=== PATIENT | male | born 1990 | race Caucasian/White ===

== ENCOUNTER 2019-05-13 06:50 | Day surgery (SDC) | payer MEDICAID ==
[~2019-05-13] VITALS: Ht 180.3 cm; Wt 90.9 kg
[2019-05-13] VITALS (19 sets, daily range): BP systolic 105–130; BP diastolic 54–84
[~2019-05-13 06:50] MED LIST: NO HOME MEDS; albuterol 2.5 MG/3 ML nebule NEB ONE; cefazolin/dext.iso 2gm/100 ML IV ONE; famotidine 20mg tablet PO ONE; ringers solution, lacted 1,000 ML IV SCH
[2019-05-13] MEDS ORDERED: cefazolin/dext.iso 2gm/100 ML IV ONE (08:30)
[2019-05-13 08:37] LABS: BASOPHILS % (AUTO) 0.7 % (0-1); EOSINOPHILS # (AUTO) 0.1 X10'3 (0-0.9); LYMPHOCYTES # (AUTO) 1.2 X10'3 (1.1-4.8); LYMPHOCYTES % (AUTO) 26.3 % (21-51); MEAN CORPUSCULAR HEMOGLOBIN 29.6 PG (27.0-31.0); MEAN CORPUSCULAR VOLUME 89.8 FL (78-98); MEAN PLATELET VOLUME 9.1 FL (7.4-10.4); MONOCYTES # (AUTO) 0.4 X10'3 (0-0.9); MONOCYTES % (AUTO) 7.7 % (2-12); NEUTROPHILS # (AUTO) 2.9 X10'3 (1.8-7.7); NEUTROPHILS % (AUTO) 62.3 % (42-75); PRE OP HEMATOCRIT 40.3 % (42.0-52.0); PRE OP HEMOGLOBIN 13.3 g/dL (14.0-17.9); PRE OP PLATELET COUNT 207 X10'3 (140-440); RED BLOOD COUNT 4.49 X10'6 (4.70-6.10)
[2019-05-13 08:50] LABS: ALBUMIN 3.5 G/DL (3.4-5.0); ALBUMIN/GLOBULIN RATIO 1.2 (1.1-1.5); ALKALINE PHOSPHATASE 85 IU/L (46-116); BLOOD UREA NITROGEN 15 MG/DL (7-18); BUN/CREATININE RATIO 13.5 (5.4-32.0); CALCIUM 7.9 MG/DL (8.5-10.1); CHLORIDE 106 MMOL/L (99-107); CREATININE 1.11 MG/DL (0.60-1.10); PRE OP ALT 45 U/L (30-65); PRE OP ANION GAP 7 (8-16); PRE OP AST 11 U/L (10-37); PRE OP BILIRUB, TOTAL 0.4 MG/DL (0.0-1.0); PRE OP GLUCOSE 92 MG/DL (70-104); PRE OP POTASSIUM 3.6 MMOL/L (3.4-5.1); PRE OP SODIUM 141 MMOL/L (135-145); TOTAL CARBON DIOXIDE 28.2 MMOL/L (24-32); TOTAL PROTEIN 6.5 G/DL (6.4-8.2); eGFR 78 ML/MIN
[2019-05-13] MEDS ORDERED: BUPIVAcaine/PF 2.5mg/ml (0.25%) 10ml vial ONE (10:17)
[2019-05-13] MEDS ORDERED: ceFAZolin 1000mg inj ONE (10:17)
[2019-05-13] MEDS ORDERED: sevoflurane 250ml liquid IH ONE (10:37)
[2019-05-13] MEDS ORDERED: dexamethasone sod phosphate 10mg/ml inj ONE (10:37)
[2019-05-13] MEDS ORDERED: rocuronium 10mg/ml inj IV ONE (10:43)
[2019-05-13] MEDS ORDERED: fentaNYL/PF 50MCG/1 ML 2ML syringe ONE ×2 (10:43→11:15)
[2019-05-13] MEDS ORDERED: midazolam 2 mg/2 ml injection ONE (10:43)
[2019-05-13] MEDS ORDERED: propofol inj 20 ML IV ONE (10:43)
[2019-05-13] MEDS ORDERED: ondansetron/PF 4mg/2ml inj ONE (10:43)
[2019-05-13] MEDS ORDERED: LIDOcaine 2% (20mg/ml) 5ml vial ONE (10:43)
[2019-05-13] MEDS ORDERED: ketorolac trometh. 30mg/ml inj. ONE (11:31)
--- NOTE | 2019-05-13 11:43 | NUR ---
Received from OR via [facility], accompanied by Anesthesiologist DR BARAHONA and report given by Anesthesiologist. PT DROWSY, NO S/S OF DISTRESS/DISCOMFORT. ABDOMEN W/2 LAP SITES W/BANDAIDS CDI. Addendum: 05/13/19 at 1200 by Maria Del Carmen Freeman RN Amended: Links added.
[2019-05-13] MEDS ORDERED: meperidine/PF 25mg/ml syringe ONE (12:08)
[2019-05-13] MEDS ORDERED: ringers solution, lacted 1,000 ML IV SCH (12:14)
[2019-05-13] MEDS ORDERED: hydrALAZINE 20mg/ml inj. IV PRN (12:15)
[2019-05-13] MEDS ORDERED: ondansetron/PF 4mg/2ml inj IV PRN (12:15)
[2019-05-13] MEDS ORDERED: fentaNYL/PF 50MCG/1 ML 2ML syringe IV PRN ×2 (12:15)
[2019-05-13] MEDS ORDERED: labetalol 20mg/4ml (5mg/ml) syringe IV PRN (12:15)
[2019-05-13] MEDS ORDERED: morphine 4 MG/ML inj SYRINge IV PRN ×2 (12:15)
--- NOTE | 2019-05-13 14:43 | NUR ---
PT ABLE TO VOID, NAUSEA RESOLVED, PAIN TOLERABLE, D/C INSTRUCTIONS GIVEN AND GONE OVER W/PT, PT VERBALIZES UNDERSTANDING, PT D/CD TO HOME VIA W/C TO PRIVATE VEHICLE W/O INCIDENT. Addendum: 05/13/19 at 1500 by Maria Del Carmen Fereman RN Amended: Links added.
== END 2019-05-13 14:43 | disposition home or self-care (01) ==
LOC: PAS 06:50
PROVIDERS: ATTEND Surgery
DX: K40.90 Unilateral inguinal hernia, without obstruction or gangrene, not specified as recurrent (principal); F17.210 Nicotine dependence, cigarettes, uncomplicated; Z79.899 Other long term (current) drug therapy
CPT/HCPCS: 36415; 49650; 71045; 80053; 85025; 93005; 94760; C1781; J0690; J1885; J2001; J2175; J2250; J2405; J2704; J3010; J3490; J7120; A4215; A4314; A4618; A6258; J1100

== ENCOUNTER 2019-06-27 17:31 | Inpatient (IN) | payer MEDICAID ==
[~2019-06-27] VITALS: Ht 180.3 cm; Wt 95.5 kg
[~2019-06-27 17:31] MED LIST changes: -albuterol 2.5 MG/3 ML nebule NEB ONE; -cefazolin/dext.iso 2gm/100 ML IV ONE; -famotidine 20mg tablet PO ONE; -ringers solution, lacted 1,000 ML IV SCH
[2019-06-27 18:20] LABS: BASOPHILS # (AUTO) 0.1 X10'3 (0-0.2); MEAN PLATELET VOLUME 9.4 FL (7.4-10.4); WHITE BLOOD COUNT 7.9 X10'3 (4.5-11.0)
[2019-06-27 18:23] LABS: BASOPHILS % (AUTO) 1.5 % (0-1); EOSINOPHILS # (AUTO) 0.2 X10'3 (0-0.9); EOSINOPHILS % (AUTO) 2.2 % (0-6); HEMATOCRIT 40.1 % (42.0-52.0); HEMOGLOBIN 13.7 g/dl (14.0-17.9); LYMPHOCYTES # (AUTO) 1.6 X10'3 (1.1-4.8); LYMPHOCYTES % (AUTO) 19.9 % (21-51); MEAN CORPUSCULAR HEMOGLOBIN 30.1 PG (27.0-31.0); MEAN CORPUSCULAR HGB CONC 34.2 g/dL (33.0-36.5); MEAN CORPUSCULAR VOLUME 88.1 FL (78-98); MONOCYTES # (AUTO) 0.7 X10'3 (0-0.9); MONOCYTES % (AUTO) 8.3 % (2-12); NEUTROPHILS # (AUTO) 5.4 X10'3 (1.8-7.7); NEUTROPHILS % (AUTO) 68.1 % (42-75); PLATELET COUNT 278 X10'3 (140-440); RED BLOOD COUNT 4.55 X10'6 (4.70-6.10)
[2019-06-27 18:31] LABS: ALANINE AMINOTRANSFERASE 43 U/L (12-78); ALBUMIN 3.3 G/DL (3.4-5.0); ALBUMIN/GLOBULIN RATIO 0.9 (1.1-1.5); ALKALINE PHOSPHATASE 104 IU/L (46-116); ANION GAP 10 (8-16); ASPARTATE AMINO TRANSFERASE 20 U/L (10-37); BILIRUBIN,TOTAL 0.3 MG/DL (0.1-1.0); BLOOD UREA NITROGEN 20 MG/DL (7-18); BUN/CREATININE RATIO 19.6 (5.4-32.0); CALCIUM 9.6 MG/DL (8.5-10.1); CHLORIDE 106 MMOL/L (99-107); CREATININE 1.02 MG/DL (0.60-1.10); GLUCOSE 117 MG/DL (70-104); PARTIAL THROMBOPLASTIN TIME 25 SECONDS (22-32); POTASSIUM 4.2 MMOL/L (3.5-5.1); SODIUM 143 MMOL/L (135-145); TOTAL CARBON DIOXIDE 27.4 MMOL/L (24-32); eGFR 86 ML/MIN
--- NOTE | 2019-06-27 19:34 | NUR ---
US tech at bedside for study as ordered.
[2019-06-27] MEDS ORDERED: mag hydrox/Alum hydrox/simeth 30ml oral suspension PO PRN (20:15)
[2019-06-27] MEDS ORDERED: magnesium hydroxide 30ml (MOM) UD suspension PO PRN (20:15)
[2019-06-27] MEDS ORDERED: acetaminophen 325mg tablet PO PRN (20:15)
[2019-06-27] MEDS ORDERED: ondansetron/PF 4mg/2ml inj IV PRN (20:15)
--- NOTE | 2019-06-27 21:00 | NUR ---
Patient in room PCU 3023B. I have received report from Jeanna DIAZ over the telephone from ER and had the opportunity to ask questions and assume patient care; patient came up to PCU unit shortly after. Patient is ambulatory, all belongings is in the closet, family at bedside, and comfortable in bed. Will continue to monitor.
[2019-06-27 21:30] VITALS: BP 114/80
[2019-06-27] MEDS: carvedilol 6.25mg tablet PO SCH (21:40)
[2019-06-27 22:32] LABS: HEMOGLOBIN A1C 5.7 % (4.5-6.2)
[2019-06-27 23:12] LABS: URINE AMPHETAMINE SCREEN NEGATIVE (Neg); URINE BARBITUATE SCREEN NEGATIVE (Neg); URINE BENZODIAZEPINES SCREEN NEGATIVE (Neg); URINE CANNABINOID SCREEN NEGATIVE (Neg); URINE COCAINE SCREEN NEGATIVE (Neg); URINE METHADONE SCREEN NEGATIVE (Neg); URINE OPIATE SCREEN NEGATIVE (Neg); URINE PHENCYCLIDINE SCREEN NEGATIVE (Neg)
[2019-06-28 02:00] VITALS: BP 96/66
--- NOTE | 2019-06-28 04:41 | NUR ---
END NOC NOTE Patient slept well tonight and had a shower at 0430. 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 Will continue to monitor.
[2019-06-28 06:00] VITALS: BP 107/76
--- NOTE | 2019-06-28 06:00 | NUR ---
COREG NOW and LASIX 20MG Patient was feeling SOB and palpations. EKG was normal and SNR, Vitals were stable (BP 107/76, HR (radial) 160 while telemetry stated 100s, RR 16, SpO2 100%. While I listened to the heart and palpated the radial heart rate the left radial beat was not in line with the heart whereas the right radial was. MD Frausto was notified and came up to see the patient, verified the misconnection of the radial heart beat with the audible heartbeat; orders were verbally given to give Lasix 20mg now and Coreg now (and was given before shift end). Patient still feels terrible but unchanged. Problems reprioritized. Patient report given, questions answered & plan of care reviewed with Femi DIAZ.
[2019-06-28] MEDS ORDERED: furosemide 20 MG/2 ML vial IV ONE ×2 (06:20→13:30)
[2019-06-28] MEDS: carvedilol 6.25mg tablet PO SCH ×2 (06:20→19:14)
[2019-06-28] MEDS: lisinopril 5mg tablet PO SCH ×2 (07:43→19:14)
[2019-06-28] MEDS: heparin, porcine 5000 units/ml vial SQ SCH ×2 (07:44→19:13)
[2019-06-28 08:18] LABS: BASOPHILS # (AUTO) 0.1 X10'3 (0-0.2); EOSINOPHILS # (AUTO) 0.2 X10'3 (0-0.9); EOSINOPHILS % (AUTO) 2.7 % (0-6); HEMOGLOBIN 13.8 g/dl (14.0-17.9); LYMPHOCYTES # (AUTO) 1.8 X10'3 (1.1-4.8); LYMPHOCYTES % (AUTO) 21.6 % (21-51); MEAN CORPUSCULAR HEMOGLOBIN 29.8 PG (27.0-31.0); MEAN CORPUSCULAR HGB CONC 33.7 g/dL (33.0-36.5); MEAN CORPUSCULAR VOLUME 88.4 FL (78-98); MEAN PLATELET VOLUME 10.1 FL (7.4-10.4); MONOCYTES # (AUTO) 0.7 X10'3 (0-0.9); MONOCYTES % (AUTO) 7.8 % (2-12); NEUTROPHILS # (AUTO) 5.6 X10'3 (1.8-7.7); NEUTROPHILS % (AUTO) 66.9 % (42-75); PLATELET COUNT 288 X10'3 (140-440); RED BLOOD COUNT 4.64 X10'6 (4.70-6.10); RED CELL DISTRIBUTION WIDTH 13.2 % (11.5-14.5); WHITE BLOOD COUNT 8.4 X10'3 (4.5-11.0)
[2019-06-28 08:49] LABS: ALANINE AMINOTRANSFERASE 42 U/L (12-78); ALBUMIN 3.1 G/DL (3.4-5.0); ALBUMIN/GLOBULIN RATIO 0.8 (1.1-1.5); ALKALINE PHOSPHATASE 92 IU/L (46-116); ANION GAP 9 (8-16); ASPARTATE AMINO TRANSFERASE 21 U/L (10-37); BILIRUBIN,TOTAL 0.3 MG/DL (0.1-1.0); BLOOD UREA NITROGEN 22 MG/DL (7-18); BUN/CREATININE RATIO 18.5 (5.4-32.0); CALCIUM 8.8 MG/DL (8.5-10.1); CHLORIDE 107 MMOL/L (99-107); CHOL/HDL RATIO 2.6 (0.00-4.99); CHOLESTEROL 92 MG/DL (0-200); CREATININE 1.19 MG/DL (0.60-1.10); GLUCOSE 98 MG/DL (70-104); HDL CHOLESTEROL 36 MG/DL (35-60); LDL CHOLESTEROL 55 MG/DL (50-100); POTASSIUM 4.7 MMOL/L (3.5-5.1); SODIUM 144 MMOL/L (135-145); TOTAL CARBON DIOXIDE 28.2 MMOL/L (24-32); TOTAL PROTEIN 6.8 G/DL (6.4-8.2); TRIGLYCERIDES 44 MG/DL (20-135); eGFR 72 ML/MIN
--- NOTE | 2019-06-28 10:49 | NUR ---
Notifed Dr of 12 beat run in Vtach no change in orders.
[2019-06-28 11:00] VITALS: BP 92/65
[2019-06-28 15:00] VITALS: BP 103/57
--- NOTE | 2019-06-28 18:11 | NUR ---
Problems reprioritized. Patient report given, questions answered & plan of care reviewed with EMILY Magdaleno.
[2019-06-28 19:00] VITALS: BP 124/61
[2019-06-28 23:00] VITALS: BP 97/64
[2019-06-29 03:00] VITALS: BP 96/57
[2019-06-29 05:28] LABS: BASOPHILS # (AUTO) 0.1 X10'3 (0-0.2); BASOPHILS % (AUTO) 0.7 % (0-1); EOSINOPHILS # (AUTO) 0.2 X10'3 (0-0.9); HEMATOCRIT 40.7 % (42.0-52.0); HEMOGLOBIN 13.6 g/dl (14.0-17.9); LYMPHOCYTES # (AUTO) 1.7 X10'3 (1.1-4.8); LYMPHOCYTES % (AUTO) 22.3 % (21-51); MEAN CORPUSCULAR HEMOGLOBIN 29.5 PG (27.0-31.0); MEAN CORPUSCULAR HGB CONC 33.4 g/dL (33.0-36.5); MEAN CORPUSCULAR VOLUME 88.4 FL (78-98); MEAN PLATELET VOLUME 9.7 FL (7.4-10.4); MONOCYTES # (AUTO) 0.8 X10'3 (0-0.9); MONOCYTES % (AUTO) 10.5 % (2-12); NEUTROPHILS # (AUTO) 4.7 X10'3 (1.8-7.7); NEUTROPHILS % (AUTO) 63.5 % (42-75); PLATELET COUNT 294 X10'3 (140-440); RED BLOOD COUNT 4.61 X10'6 (4.70-6.10); RED CELL DISTRIBUTION WIDTH 13.3 % (11.5-14.5); WHITE BLOOD COUNT 7.4 X10'3 (4.5-11.0)
--- NOTE | 2019-06-29 05:36 | NUR ---
Patient in room PCU 3023. I have received report from Femi DIAZ and had the opportunity to ask questions and assume patient care.
--- NOTE | 2019-06-29 05:37 | NUR ---
END NOC NOTE Patient has slept well tonight, is able to ambulate independently and reposition in bed without shortness of breath. Patient would like to be discharged today as soon as possible, his sister is in town to take him back with her to [place] and he stated it is to "get away from the bad people,... I want to stay away from stuff [meth]". Will continue to monitor.
[2019-06-29 05:47] LABS: ALANINE AMINOTRANSFERASE 38 U/L (12-78); ALBUMIN 2.9 G/DL (3.4-5.0); ALBUMIN/GLOBULIN RATIO 0.8 (1.1-1.5); ALKALINE PHOSPHATASE 82 IU/L (46-116); ANION GAP 6 (8-16); ASPARTATE AMINO TRANSFERASE 17 U/L (10-37); BILIRUBIN,TOTAL 0.6 MG/DL (0.1-1.0); BLOOD UREA NITROGEN 21 MG/DL (7-18); BUN/CREATININE RATIO 17.2 (5.4-32.0); CALCIUM 8.9 MG/DL (8.5-10.1); CHLORIDE 106 MMOL/L (99-107); CREATININE 1.22 MG/DL (0.60-1.10); GLUCOSE 92 MG/DL (70-104); POTASSIUM 4.5 MMOL/L (3.5-5.1); SODIUM 143 MMOL/L (135-145); TOTAL CARBON DIOXIDE 31.3 MMOL/L (24-32); TOTAL PROTEIN 6.5 G/DL (6.4-8.2); eGFR 70 ML/MIN
[2019-06-29 06:00] VITALS: BP 100/52
--- NOTE | 2019-06-29 06:46 | NUR ---
Patient in room PCU 3023. I have received report from EMILY Magdaleno and had the opportunity to ask questions and assume patient care. Pt is sleeping. Will continue to monitor.
--- NOTE | 2019-06-29 06:50 | NUR ---
Problems reprioritized. Patient report given, questions answered & plan of care reviewed with Vero RN.
[2019-06-29] MEDS: carvedilol 6.25mg tablet PO SCH (07:35)
[2019-06-29] MEDS: lisinopril 5mg tablet PO SCH (07:35)
[2019-06-29] MEDS: heparin, porcine 5000 units/ml vial SQ SCH (07:36)
[2019-06-29] MEDS ORDERED: furosemide 20 MG/2 ML vial IV SCH (08:00)
[2019-06-29 11:00] VITALS: BP 95/55
--- NOTE | 2019-06-29 13:19 | NUR ---
Sent to Dr Catalan PAGER ID: [phone] MESSAGE: RE: Mairaayad Simon [id number]. Pt is requesting a referral to get fitted for the Life Vest in [place] so he can leave with his sister today. He is concerned about staying around bad influences and starting up bad habits. -Vero 0224
--- NOTE | 2019-06-29 14:32 | NUR ---
Sent to Dr Catalan PAGER ID: [phone] MESSAGE: RE: Mairaayad Simon [id number]. Pt would like to work with you regarding his discharge. He stated that he is leaving with his sister, even if he has to do it AMA. Please advise. -Vero [phone]
--- NOTE | 2019-06-29 15:40 | NUR ---
Pt left AMA. He stated he will visit a hospital in [place] to get his life vest, and set up care with a PCP. Tele was removed, IV d/c'd, and all belongings sent with pt. He walked out with family and accompanied by staff. Left in a private vehicle. AMA form signed, and the pt was aware of the risks.
== END 2019-06-29 15:40 | disposition left against medical advice (07) | DRG 194 ==
LOC: ER 17:32 → ED HOLD 20:18 → PCU 3S 21:10
PROVIDERS: ADMIT Internal Medicine; ATTEND Internal Medicine
DX: I50.23 Acute on chronic systolic (congestive) heart failure (principal); I42.7 Cardiomyopathy due to drug and external agent; F15.10 Other stimulant abuse, uncomplicated; Z53.21 Procedure and treatment not carried out due to patient leaving prior to being seen by health care provider; F17.200 Nicotine dependence, unspecified, uncomplicated; Z71.51 Drug abuse counseling and surveillance of drug abuser
CPT/HCPCS: 36415; 71045; 80053; 80061; 80305; 83036; 83880; 84484; 85025; 85379; 85610; 85730; 87081; 93005; 93306; 99285; G0378; J1644; J1940

== ENCOUNTER 2019-08-27 13:47 | Inpatient (IN) | payer MEDICAID ==
[~2019-08-27] VITALS: Ht 180.3 cm; Wt 112.0 kg
[~2019-08-27 13:47] MED LIST changes: +ALBU18HF2 IH; +ASPI-1265 PO; +AZI25OT PO; +FLUT1DIS4 INH; +FURO40TA4 PO; +LISI10TA4 PO
[2019-08-27 14:32] LABS: BASOPHILS # (AUTO) 0.1 X10'3 (0-0.2); BASOPHILS % (AUTO) 0.6 % (0-1); EOSINOPHILS % (AUTO) 0.5 % (0-6); HEMATOCRIT 44.3 % (42.0-52.0); LYMPHOCYTES # (AUTO) 1.2 X10'3 (1.1-4.8); LYMPHOCYTES % (AUTO) 12.9 % (21-51); MEAN CORPUSCULAR HEMOGLOBIN 30.6 PG (27.0-31.0); MEAN CORPUSCULAR HGB CONC 33.9 g/dL (33.0-36.5); MEAN CORPUSCULAR VOLUME 90.5 FL (78-98); MEAN PLATELET VOLUME 10.1 FL (7.4-10.4); MONOCYTES # (AUTO) 0.9 X10'3 (0-0.9); MONOCYTES % (AUTO) 8.9 % (2-12); NEUTROPHILS # (AUTO) 7.4 X10'3 (1.8-7.7); NEUTROPHILS % (AUTO) 77.1 % (42-75); PLATELET COUNT 227 X10'3 (140-440); RED BLOOD COUNT 4.89 X10'6 (4.70-6.10); RED CELL DISTRIBUTION WIDTH 14.3 % (11.5-14.5); WHITE BLOOD COUNT 9.6 X10'3 (4.5-11.0)
[2019-08-27 14:48] LABS: ALANINE AMINOTRANSFERASE 577 U/L (12-78); ALBUMIN 3.2 G/DL (3.4-5.0); ALKALINE PHOSPHATASE 125 IU/L (46-116); ANION GAP 8 (8-16); ASPARTATE AMINO TRANSFERASE 317 U/L (10-37); BILIRUBIN,TOTAL 1.8 MG/DL (0.1-1.0); BLOOD UREA NITROGEN 29 MG/DL (7-18); BUN/CREATININE RATIO 18.4 (5.4-32.0); CALCIUM 8.5 MG/DL (8.5-10.1); CHLORIDE 97 MMOL/L (99-107); CREATININE 1.58 MG/DL (0.60-1.10); GLUCOSE 109 MG/DL (70-104); POTASSIUM 3.9 MMOL/L (3.5-5.1); SODIUM 134 MMOL/L (135-145); TOTAL CARBON DIOXIDE 29.4 MMOL/L (24-32); TOTAL PROTEIN 6.4 G/DL (6.4-8.2); eGFR 52 ML/MIN
[2019-08-27] MEDS ORDERED: furosemide 10 MG/1 ML 10ml inj IV ONE (17:20)
[2019-08-27] MEDS ORDERED: ALBU8.5H8 INH (18:10)
[2019-08-27] MEDS ORDERED: mag hydrox/Alum hydrox/simeth 30ml oral suspension PO PRN (18:10)
[2019-08-27] MEDS ORDERED: HYDROcodone/acetaminophen 5mg/325mg tablet PO PRN (18:10)
[2019-08-27] MEDS ORDERED: morphine 2 MG/ML inj. syringe IV PRN ×2 (18:10)
[2019-08-27] MEDS ORDERED: acetaminophen 325mg tablet PO PRN ×2 (18:10)
[2019-08-27] MEDS ORDERED: FLUT1DIS4 INH (18:10)
[2019-08-27] MEDS ORDERED: ASPI-12 PO (18:10)
[2019-08-27] MEDS ORDERED: magnesium hydroxide 30ml (MOM) UD suspension PO PRN (18:10)
[2019-08-27] MEDS ORDERED: LISI10TA4 PO (18:11)
--- NOTE | 2019-08-27 19:15 | NUR ---
CALLED TO GIVE REPORT. PATIENTS ARE BEING SHIFTED AND DISCHARGED THEN NURSE WILL CALL TO RECIEVE REPORT.
--- NOTE | 2019-08-27 19:20 | NUR ---
PROVIDED PT WITH SANDWICH, MILK, AND JELLO
--- NOTE | 2019-08-27 19:30 | NUR ---
report called by EMILY Garrison, awaiting pt arrival to unit
--- NOTE | 2019-08-27 19:45 | NUR ---
pt arrived to unit, vss, transferred self to bed. oriented pt to unit, in no apparent distress, call light in reach, 2x rails up, will continue to monitor
[2019-08-27 19:50] VITALS: BP 125/56
[2019-08-27] MEDS: furosemide 40mg/4ml inj IV SCH (21:28)
[2019-08-27] MEDS: carVEDilol 3.125mg tablet PO SCH (21:28)
[2019-08-27 22:00] VITALS: BP 116/86
[2019-08-27] MEDS ORDERED: Melatonin 3mg tablet PO PRN (22:50)
[2019-08-28 02:00] VITALS: BP 114/66
--- NOTE | 2019-08-28 05:29 | NUR ---
educated pt on importance of using urinal instead of toilet for accurate output r/t edema and lasix administration. pt acknowledged importance and said he will try to remember to use urinal next time
[2019-08-28 06:00] VITALS: BP 105/72
--- NOTE | 2019-08-28 06:20 | NUR ---
Patient in room U 3014B. I have received report from Jose G DIAZ and had the opportunity to ask questions and assume patient care. Patient sitting up in bed, awake, complains of nausea. Will monitor and check MAR for PRN nausea medications.
[2019-08-28 06:26] LABS: BASOPHILS # (AUTO) 0.1 X10'3 (0-0.2); BASOPHILS % (AUTO) 0.8 % (0-1); EOSINOPHILS # (AUTO) 0.1 X10'3 (0-0.9); EOSINOPHILS % (AUTO) 0.7 % (0-6); HEMATOCRIT 42.8 % (42.0-52.0); HEMOGLOBIN 14.5 g/dl (14.0-17.9); LYMPHOCYTES # (AUTO) 1.3 X10'3 (1.1-4.8); LYMPHOCYTES % (AUTO) 17.3 % (21-51); MEAN CORPUSCULAR HEMOGLOBIN 29.9 PG (27.0-31.0); MEAN CORPUSCULAR HGB CONC 33.8 g/dL (33.0-36.5); MEAN CORPUSCULAR VOLUME 88.5 FL (78-98); MEAN PLATELET VOLUME 10.6 FL (7.4-10.4); MONOCYTES # (AUTO) 0.9 X10'3 (0-0.9); MONOCYTES % (AUTO) 11.8 % (2-12); NEUTROPHILS # (AUTO) 5.2 X10'3 (1.8-7.7); NEUTROPHILS % (AUTO) 69.4 % (42-75); PLATELET COUNT 205 X10'3 (140-440); RED BLOOD COUNT 4.84 X10'6 (4.70-6.10); RED CELL DISTRIBUTION WIDTH 14.1 % (11.5-14.5); WHITE BLOOD COUNT 7.5 X10'3 (4.5-11.0)
--- NOTE | 2019-08-28 06:27 | NUR ---
report given to EMILY Benítez
[2019-08-28 06:54] LABS: ALANINE AMINOTRANSFERASE 522 U/L (12-78); ALBUMIN 2.8 G/DL (3.4-5.0); ALBUMIN/GLOBULIN RATIO 0.9 (1.1-1.5); ALKALINE PHOSPHATASE 133 IU/L (46-116); ANION GAP 12 (8-16); ASPARTATE AMINO TRANSFERASE 279 U/L (10-37); BILIRUBIN,TOTAL 1.6 MG/DL (0.1-1.0); BLOOD UREA NITROGEN 35 MG/DL (7-18); BUN/CREATININE RATIO 23.6 (5.4-32.0); CALCIUM 8.3 MG/DL (8.5-10.1); CHLORIDE 97 MMOL/L (99-107); CREATININE 1.48 MG/DL (0.60-1.10); GLUCOSE 110 MG/DL (70-104); POTASSIUM 3.4 MMOL/L (3.5-5.1); SODIUM 135 MMOL/L (135-145); TOTAL CARBON DIOXIDE 26.3 MMOL/L (24-32); TOTAL PROTEIN 5.8 G/DL (6.4-8.2); eGFR 56 ML/MIN
[2019-08-28 07:21] LABS: LARGE PLATELETS FEW; PLATELET ESTIMATE NORMAL
[2019-08-28] MEDS: enoxaparin 40mg/0.4ml syringe SUBCUT SCH (08:03)
[2019-08-28] MEDS: carVEDilol 3.125mg tablet PO SCH ×2 (08:04→20:18)
[2019-08-28] MEDS: ondansetron/PF 4mg/2ml inj IV PRN ×2 (08:04→15:07)
[2019-08-28] MEDS: spironolactone 25 MG tablet PO SCH (08:04)
[2019-08-28] MEDS: furosemide 40mg/4ml inj IV SCH ×2 (08:05→20:19)
[2019-08-28] MEDS ORDERED: potassium CL 10mEq/100ml bag 100 ML IV PRN (09:05)
[2019-08-28] MEDS ORDERED: potassium Cl 20 mEq SR tablet PO PRN ×2 (09:05)
[2019-08-28] MEDS ORDERED: magnesium Cl slow-release 64mg tablet PO PRN (09:05)
[2019-08-28] MEDS ORDERED: magnesium 4gm in 100ml NS 100 ML IV PRN (09:05)
[2019-08-28] MEDS: morphine 2 MG/ML inj. syringe IV PRN ×2 (10:44→15:16)
[2019-08-28 11:00] VITALS: BP 107/71
--- NOTE | 2019-08-28 15:30 | NUR ---
Patient refused 1500 vital signs. Patient is awake, alert, on tele monitor. Maintaining oxygenation and moving air. Will continue to monitor.
--- NOTE | 2019-08-28 17:47 | NUR ---
Patient K+ on AM labs was 3.4. Potassium replacement protocol started this morning, given one dose of 20mEq this morning. Unable to give subsequent doses of potassium due to recurrent episodes of vomiting. Patient c/o nausea and had several episodes of vomiting today.
[2019-08-28 18:00] VITALS: BP 119/80
--- NOTE | 2019-08-28 18:00 | NUR ---
Patient in room PCU 3014. I have received report from TOAN DIAZ and had the opportunity to ask questions and assume patient care.
--- NOTE | 2019-08-28 18:30 | NUR ---
Problems reprioritized. Patient report given, questions answered & plan of care reviewed with Geovanna DIAZ.
--- NOTE | 2019-08-28 18:34 | NUR ---
Paged hospitalist, Dr. Hancock, for oncoming RN Geovanna. When giving report on patient, was notified that HR is in thr 150-160's sustained. No complaints of CP, complains of increasing SOB. Paged hospitalist Dr. Hancock. PAGER ID: [phone] MESSAGE: Geovanna ortiz [phone]. RE Maico Benitez [id number]. Patient HR jumped into the 150-160's, sinus tach. Complains of increasing SOB, no CP/palpitations. Please advise, Thanks!
[2019-08-28 22:00] VITALS: BP 106/67
[2019-08-29] MEDS: HYDROcodone/acetaminophen 5mg/325mg tablet PO PRN ×2 (00:42→08:17)
[2019-08-29 02:00] VITALS: BP 95/65
[2019-08-29 06:00] VITALS: BP 107/72
--- NOTE | 2019-08-29 06:18 | NUR ---
Patient in room PCU 3014B. I have received report from Geovanna DIAZ and had the opportunity to ask questions and assume patient care.
--- NOTE | 2019-08-29 06:28 | NUR ---
Problems reprioritized. Patient report given, questions answered & plan of care reviewed with TOAN DIAZ.
[2019-08-29 07:25] LABS: BASOPHILS # (AUTO) 0.1 X10'3 (0-0.2); EOSINOPHILS # (AUTO) 0.1 X10'3 (0-0.9); EOSINOPHILS % (AUTO) 1.2 % (0-6); HEMATOCRIT 42.1 % (42.0-52.0); HEMOGLOBIN 14.2 g/dl (14.0-17.9); LYMPHOCYTES # (AUTO) 1.7 X10'3 (1.1-4.8); MEAN CORPUSCULAR HEMOGLOBIN 30.1 PG (27.0-31.0); MEAN CORPUSCULAR HGB CONC 33.6 g/dL (33.0-36.5); MEAN CORPUSCULAR VOLUME 89.5 FL (78-98); MEAN PLATELET VOLUME 10.7 FL (7.4-10.4); MONOCYTES % (AUTO) 11.2 % (2-12); NEUTROPHILS # (AUTO) 5.7 X10'3 (1.8-7.7); NEUTROPHILS % (AUTO) 66.6 % (42-75); PLATELET COUNT 220 X10'3 (140-440); RED BLOOD COUNT 4.71 X10'6 (4.70-6.10); RED CELL DISTRIBUTION WIDTH 14.5 % (11.5-14.5); WHITE BLOOD COUNT 8.5 X10'3 (4.5-11.0)
[2019-08-29 07:52] LABS: ALBUMIN 2.8 G/DL (3.4-5.0)
[2019-08-29 07:53] LABS: ALANINE AMINOTRANSFERASE 803 U/L (12-78); ALKALINE PHOSPHATASE 124 IU/L (46-116); ANION GAP 10 (8-16); ASPARTATE AMINO TRANSFERASE 578 U/L (10-37); BILIRUBIN,TOTAL 2.8 MG/DL (0.1-1.0); BLOOD UREA NITROGEN 46 MG/DL (7-18); BUN/CREATININE RATIO 22.9 (5.4-32.0); CALCIUM 8.7 MG/DL (8.5-10.1); CHLORIDE 93 MMOL/L (99-107); CREATININE 2.01 MG/DL (0.60-1.10); GLUCOSE 92 MG/DL (70-104); POTASSIUM 3.8 MMOL/L (3.5-5.1); SODIUM 131 MMOL/L (135-145); TOTAL CARBON DIOXIDE 27.6 MMOL/L (24-32); TOTAL PROTEIN 5.6 G/DL (6.4-8.2); eGFR 39 ML/MIN
[2019-08-29] MEDS: carVEDilol 3.125mg tablet PO SCH ×2 (08:16→22:14)
[2019-08-29] MEDS: spironolactone 25 MG tablet PO SCH (08:17)
[2019-08-29] MEDS: furosemide 40mg/4ml inj IV SCH ×2 (08:17→22:14)
[2019-08-29] MEDS: enoxaparin 40mg/0.4ml syringe SUBCUT SCH (08:18)
[2019-08-29 09:30] LABS: LARGE PLATELETS FEW; PLATELET ESTIMATE NORMAL
[2019-08-29 11:00] VITALS: BP 104/72
[2019-08-29] MEDS: ondansetron/PF 4mg/2ml inj IV PRN (12:40)
--- NOTE | 2019-08-29 13:40 | NUR ---
Patient is having multiple episodes of vomiting, given Zofran IV without relief. Paged hospitalist for recommendations. PAGER ID: [phone] MESSAGE: Jackelin ortiz [phone]. Maico Cárdenas [id number]. CT results are in. Also, patient is having multiple episodes of vomiting, given Zofran without relief. Please advise. Thank you!
--- NOTE | 2019-08-29 14:07 | NUR ---
Spoke with Dr. Regan regarding patient. She has reviewed CT scan, recommends holding doses of morphine and Anabel given ileus seen on CT. Given new orders for antiemetics.
[2019-08-29] MEDS ORDERED: ondansetron/PF 4mg/2ml inj IV PRN (14:10)
--- NOTE | 2019-08-29 15:44 | NUR ---
Patient is having spasms and pain in shoulders and neck, requesting medication for pain. PAGER ID: [phone] MESSAGE: Jackelin Tinoco [phone]. Maico Cárdenas [id number]. Patient is requesting lidocaine patch or some topical medication for pain. Thanks!
[2019-08-29 16:54] VITALS: BP 103/72
--- NOTE | 2019-08-29 17:28 | NUR ---
Paged hospitalist regarding order for Relistor. On NOV it is timed to start Friday 08/31. PAGER ID: [phone] MESSAGE: Jackelin ortiz [phone]. Maico Cárdenas [id number]. Relistor was ordered to start Friday 08/31, can I give medication now? Thanks.
[2019-08-29] MEDS: methylnaltrexone br 12mg/0.6ml inj***SubQ only SQ SCH (17:59)
[2019-08-29 18:00] VITALS: BP 105/78
--- NOTE | 2019-08-29 18:00 | NUR ---
Patient in room U 3014. I have received report from Jackelin DIAZ and had the opportunity to ask questions and assume patient care. Addendum: 08/29/19 at 2257 by Sarah Roman RN Amended: Links added.
--- NOTE | 2019-08-29 18:25 | NUR ---
Problems reprioritized. Patient report given, questions answered & plan of care reviewed with Sarah DIAZ.
[2019-08-29 22:00] VITALS: BP 102/76
[2019-08-29] MEDS: LIDOcaine 5% patch TP SCH (22:19)
[2019-08-29] MEDS: proMETHazine 6.25 mg/5 ml UD oral syrup PO PRN (23:07)
[2019-08-30] VITALS (9 sets, daily range): BP systolic 98–124; BP diastolic 71–88
--- NOTE | 2019-08-30 05:00 | NUR ---
Pt. c/o neck pain 12/31; requested lidoderm patch effective. N/v x 2 medicated with promethazine ivp effective. Addendum: 08/30/19 at 0727 by Sarah Roman RN Amended: Links added.
[2019-08-30 05:22] LABS: BASOPHILS # (AUTO) 0.1 X10'3 (0-0.2); BASOPHILS % (AUTO) 0.7 % (0-1); EOSINOPHILS % (AUTO) 0.2 % (0-6); HEMATOCRIT 43.4 % (42.0-52.0); HEMOGLOBIN 14.4 g/dl (14.0-17.9); LYMPHOCYTES # (AUTO) 1.4 X10'3 (1.1-4.8); LYMPHOCYTES % (AUTO) 18.5 % (21-51); MEAN CORPUSCULAR HEMOGLOBIN 29.7 PG (27.0-31.0); MEAN CORPUSCULAR HGB CONC 33.1 g/dL (33.0-36.5); MEAN CORPUSCULAR VOLUME 89.7 FL (78-98); MEAN PLATELET VOLUME 11.1 FL (7.4-10.4); MONOCYTES % (AUTO) 13.1 % (2-12); NEUTROPHILS # (AUTO) 5.2 X10'3 (1.8-7.7); NEUTROPHILS % (AUTO) 67.5 % (42-75); PLATELET COUNT 230 X10'3 (140-440); RED BLOOD COUNT 4.83 X10'6 (4.70-6.10); RED CELL DISTRIBUTION WIDTH 14.3 % (11.5-14.5); WHITE BLOOD COUNT 7.7 X10'3 (4.5-11.0)
[2019-08-30 05:49] LABS: ALBUMIN 2.8 G/DL (3.4-5.0); ALKALINE PHOSPHATASE 115 IU/L (46-116); ANION GAP 8 (8-16); ASPARTATE AMINO TRANSFERASE 745 U/L (10-37); BILIRUBIN,TOTAL 3.3 MG/DL (0.1-1.0); BLOOD UREA NITROGEN 49 MG/DL (7-18); BUN/CREATININE RATIO 21.5 (5.4-32.0); CALCIUM 8.8 MG/DL (8.5-10.1); CHLORIDE 92 MMOL/L (99-107); CREATININE 2.28 MG/DL (0.60-1.10); GLUCOSE 100 MG/DL (70-104); POTASSIUM 4.2 MMOL/L (3.5-5.1); SODIUM 129 MMOL/L (135-145); TOTAL CARBON DIOXIDE 28.7 MMOL/L (24-32); TOTAL PROTEIN 5.7 G/DL (6.4-8.2); eGFR 34 ML/MIN
[2019-08-30 05:51] LABS: ALANINE AMINOTRANSFERASE 1097 U/L (12-78)
--- NOTE | 2019-08-30 06:00 | NUR ---
Problems reprioritized. Patient report given, questions answered & plan of care reviewed with Olman. Addendum: 08/30/19 at 0727 by Sarah Roman RN Amended: Links added.
--- NOTE | 2019-08-30 06:25 | NUR ---
Patient in room PCU 3014. I have received report from natalya castañeda and had the opportunity to ask questions and assume patient care.
[2019-08-30 07:17] LABS: BURR CELLS 1+; ELLIPTOCYTES 1+; PLATELET ESTIMATE NORMAL; POLYCHROMASIA 1+
[2019-08-30] MEDS: LIDOcaine 5% patch TP SCH (08:00)
[2019-08-30] MEDS: furosemide 40mg/4ml inj IV SCH ×2 (08:16→20:15)
[2019-08-30] MEDS: enoxaparin 40mg/0.4ml syringe SUBCUT SCH (08:18)
[2019-08-30] MEDS: carVEDilol 3.125mg tablet PO SCH ×2 (08:18→20:15)
[2019-08-30] MEDS: spironolactone 25 MG tablet PO SCH (08:19)
[2019-08-30] MEDS: DOBUTamine-DoBUTrex 500mg/D5W 250 ML IV SCH (09:20)
[2019-08-30] MEDS: proMETHazine 6.25 mg/5 ml UD oral syrup PO PRN (11:58)
--- NOTE | 2019-08-30 12:18 | NUR ---
PAGER ID: [phone] MESSAGE: DR. JOSEPH, 6576H/ISAK, GAVE PHENERGAN SYRUP 5 MG PO AT 1158. NO RELIEF OF N/V. PROBABLY LOST PHENERGAN WITH EMESIS. HAS ZOFRAN ORDERED, DOES NOT WANT TO TAKE,SAYS HE HAD A PREVIOUS REACTION TO IT, DOES NOT REMEBER WHAT. YUNIOR [id number]
--- NOTE | 2019-08-30 12:37 | NUR ---
PAGER ID: [phone] MESSAGE: DR. JOSEPH, 0051I/ISAK, CONTINUES TO HAS EMESIS. JUST HAD 600CC WHITE/CLOUDY EMESIS. YUNIOR
--- NOTE | 2019-08-30 13:15 | NUR ---
PAGER ID: [phone] MESSAGE: DR. JOSEPH, 4252I/ISAK, CONTINUES TO C/O NAUSEA. CAN I PLEASE HAVE ANOTHER TREATMENT OPTION? YUNIOR [id number]. TY.
[2019-08-30] MEDS: HYDROcodone/acetaminophen 5mg/325mg tablet PO PRN (17:41)
--- NOTE | 2019-08-30 18:52 | NUR ---
Problems reprioritized. Patient report given, questions answered & plan of care reviewed with EMILY RYAN.
--- NOTE | 2019-08-30 18:53 | NUR ---
Patient in room PCU 3014. I have received report from Olman DIAZ and had the opportunity to ask questions and assume patient care. bedside report completed. upon shift change Dobutamine drip at 2.5 mcg = 7.95 ml. BP 107/83 HR 92. denies chest pain, no distress noted.
[2019-08-30] MEDS: metoclopramide 5 mg/ml inj IV PRN (20:15)
--- NOTE | 2019-08-30 21:23 | NUR ---
Dr. Bender notified r/t 1.increased abdominal discomfort, nausea /vomiting noted 1 hour ago. currently no vomiting, slight decrease in nausea reported. pt x- ray shows small abdominal illeus. - new orders Nasal gastric tube to low wall intermitten suction. 2. currently no d dimer lab order or pending. new orders vasular ultrasound of BUE and BLE to rule out DVT. orders noted
--- NOTE | 2019-08-30 22:00 | NUR ---
pt refused Nasal gastric (NG) tube now. pt states " If I continue to vomit then I will get the tube"- education provided r/t risk and benefit to NG- tube. pt verbalized understanding. bilateral extremities vascular ultrasound will be completed tomorrow in AM/ charge account identification clerk
[2019-08-31] VITALS (10 sets, daily range): BP systolic 100–116; BP diastolic 68–88
--- NOTE | 2019-08-31 06:21 | NUR ---
Problems reprioritized. Patient report given, questions answered & plan of care reviewed with Olman RN. no distress noted. pt resting quietly.
[2019-08-31 06:52] LABS: MEAN CORPUSCULAR HEMOGLOBIN 29.7 PG (27.0-31.0); MEAN CORPUSCULAR HGB CONC 33.8 g/dL (33.0-36.5); MEAN CORPUSCULAR VOLUME 87.9 FL (78-98); MEAN PLATELET VOLUME 11.1 FL (7.4-10.4); PLATELET COUNT 198 X10'3 (140-440)
[2019-08-31 06:54] LABS: BASOPHILS # (AUTO) 0.1 X10'3 (0-0.2); BASOPHILS % (AUTO) 1.3 % (0-1); EOSINOPHILS # (AUTO) 0.1 X10'3 (0-0.9); EOSINOPHILS % (AUTO) 1.1 % (0-6); HEMATOCRIT 41.5 % (42.0-52.0); LYMPHOCYTES # (AUTO) 1.3 X10'3 (1.1-4.8); LYMPHOCYTES % (AUTO) 20.6 % (21-51); MONOCYTES # (AUTO) 0.9 X10'3 (0-0.9); NEUTROPHILS # (AUTO) 3.8 X10'3 (1.8-7.7); RED BLOOD COUNT 4.72 X10'6 (4.70-6.10); RED CELL DISTRIBUTION WIDTH 13.9 % (11.5-14.5); WHITE BLOOD COUNT 6.1 X10'3 (4.5-11.0)
--- NOTE | 2019-08-31 06:55 | NUR ---
Patient in room PCU 3014. I have received report from EMILY RYAN and had the opportunity to ask questions and assume patient care.
[2019-08-31 07:02] LABS: ALBUMIN 2.6 G/DL (3.4-5.0); ALBUMIN/GLOBULIN RATIO 0.9 (1.1-1.5); ALKALINE PHOSPHATASE 111 IU/L (46-116); ANION GAP 5 (8-16); ASPARTATE AMINO TRANSFERASE 622 U/L (10-37); BILIRUBIN,TOTAL 2.7 MG/DL (0.1-1.0); BLOOD UREA NITROGEN 51 MG/DL (7-18); BUN/CREATININE RATIO 26.2 (5.4-32.0); CALCIUM 8.3 MG/DL (8.5-10.1); CHLORIDE 92 MMOL/L (99-107); CREATININE 1.95 MG/DL (0.60-1.10); GLUCOSE 114 MG/DL (70-104); POTASSIUM 3.6 MMOL/L (3.5-5.1); SODIUM 126 MMOL/L (135-145); TOTAL CARBON DIOXIDE 28.7 MMOL/L (24-32); TOTAL PROTEIN 5.5 G/DL (6.4-8.2); eGFR 41 ML/MIN
[2019-08-31 07:06] LABS: ALANINE AMINOTRANSFERASE 1077 U/L (12-78)
[2019-08-31] MEDS: LIDOcaine 5% patch TP SCH ×2 (08:00→11:51)
[2019-08-31] MEDS: furosemide 40mg/4ml inj IV SCH ×2 (09:10→21:21)
[2019-08-31] MEDS: carVEDilol 3.125mg tablet PO SCH ×2 (09:12→21:21)
[2019-08-31] MEDS: methylnaltrexone br 12mg/0.6ml inj***SubQ only SQ SCH (09:13)
[2019-08-31] MEDS: enoxaparin 40mg/0.4ml syringe SUBCUT SCH (09:13)
[2019-08-31 09:14] LABS: PLATELET ESTIMATE NORMAL
[2019-08-31] MEDS: spironolactone 25 MG tablet PO SCH (09:14)
[2019-08-31 09:15] LABS: LARGE PLATELETS FEW
[2019-08-31 09:16] LABS: GIANT PLATELET FEW
--- NOTE | 2019-08-31 14:31 | NUR ---
PAGER ID: [phone] MESSAGE: DR. JOSEPH, 1622W/ISAK, IS ON DOBUTAMINE GTT/MOBILE MONITOR. HE WANTS TO SHOWER. I FEEL THAT WOULD NOT BE SAFE AT THIS TIME R/T ABOVE. RISKING COMPROMISING PIV AND COULD NOT MONITOR IN SHOWER. WHAT IS YOUR OPINION? YUNIOR [id number]. TY
--- NOTE | 2019-08-31 14:40 | NUR ---
DR. JOSEPH CALLED BACK. OKAY TO HOLD DOBUTAMINE AND REMOVE MONITOR TO SHOWER.
[2019-08-31] MEDS: DOBUTamine-DoBUTrex 500mg/D5W 250 ML IV SCH (14:52)
[2019-08-31] MEDS: HYDROcodone/acetaminophen 5mg/325mg tablet PO PRN (17:23)
[2019-08-31] MEDS: metoclopramide 5 mg/ml inj IV PRN (17:54)
--- NOTE | 2019-08-31 18:55 | NUR ---
Problems reprioritized. Patient report given, questions answered & plan of care reviewed with EMILY BERG.
--- NOTE | 2019-08-31 18:59 | NUR ---
Patient in room PCU 3014b. I have received report from EMILY Thurman and had the opportunity to ask questions and assume patient care.
[2019-09-01] VITALS (10 sets, daily range): BP systolic 88–113; BP diastolic 52–77
--- NOTE | 2019-09-01 03:55 | NUR ---
Patient c/o SOB with pressure on chest that radiates to jaw. Pressures are soft with most recent 99/76, RR 20, HR 89.
--- NOTE | 2019-09-01 04:04 | NUR ---
PAGER ID: [phone] MESSAGE: Ext. [phone]. EMILY Lewis for 3014B, 28 yo male admitted on 08/27 for CHF. Pt is SOB and complaining of pain/ pressure on chest. Dobutamine gtt at 2.5 mcgs/kg/min infusing. BP 99/76 HR 89. EKG shows NSR with prolonged QT Addendum: 09/01/19 at 0410 by Dylon Galeano RN Dr. De Dios notified and new orders obtained for single trop to be drawn stat. Checked in on patient and was resting comfortably. Will continue to monitor closely.
[2019-09-01 05:08] LABS: BASOPHILS # (AUTO) 0.1 X10'3 (0-0.2); HEMATOCRIT 43.8 % (42.0-52.0); LYMPHOCYTES # (AUTO) 1.2 X10'3 (1.1-4.8); LYMPHOCYTES % (AUTO) 15.8 % (21-51); MONOCYTES % (AUTO) 13.8 % (2-12)
[2019-09-01 05:12] LABS: EOSINOPHILS % (AUTO) 0.6 % (0-6); HEMOGLOBIN 14.6 g/dl (14.0-17.9); MEAN CORPUSCULAR HEMOGLOBIN 29.7 PG (27.0-31.0); MEAN CORPUSCULAR HGB CONC 33.4 g/dL (33.0-36.5); MEAN PLATELET VOLUME 11.5 FL (7.4-10.4); NEUTROPHILS % (AUTO) 68.8 % (42-75); PLATELET COUNT 205 X10'3 (140-440); RED BLOOD COUNT 4.92 X10'6 (4.70-6.10); RED CELL DISTRIBUTION WIDTH 13.9 % (11.5-14.5); WHITE BLOOD COUNT 7.3 X10'3 (4.5-11.0)
[2019-09-01 05:24] LABS: ALANINE AMINOTRANSFERASE 908 U/L (12-78); ALBUMIN 2.8 G/DL (3.4-5.0); ALBUMIN/GLOBULIN RATIO 0.9 (1.1-1.5); ALKALINE PHOSPHATASE 153 IU/L (46-116); ANION GAP 10 (8-16); ASPARTATE AMINO TRANSFERASE 457 U/L (10-37); BILIRUBIN,TOTAL 2.4 MG/DL (0.1-1.0); BLOOD UREA NITROGEN 52 MG/DL (7-18); BUN/CREATININE RATIO 20.2 (5.4-32.0); CALCIUM 8.5 MG/DL (8.5-10.1); CHLORIDE 91 MMOL/L (99-107); CREATININE 2.57 MG/DL (0.60-1.10); GLUCOSE 116 MG/DL (70-104); POTASSIUM 4.7 MMOL/L (3.5-5.1); SODIUM 127 MMOL/L (135-145); TOTAL CARBON DIOXIDE 26.3 MMOL/L (24-32); TOTAL PROTEIN 5.9 G/DL (6.4-8.2); eGFR 30 ML/MIN
[2019-09-01 05:28] LABS: TROPONIN I 0.05 NG/ML (0.0-0.05)
[2019-09-01 06:13] LABS: ELLIPTOCYTES 1+; PLATELET ESTIMATE NORMAL
[2019-09-01 06:14] LABS: BURR CELLS FEW
[2019-09-01 06:15] LABS: LARGE PLATELETS FEW
[2019-09-01 06:16] LABS: POLYCHROMASIA FEW
[2019-09-01 06:19] LABS: HBSAG SCREEN Negative (Negative); HEP B CORE AB, IGM Negative (Negative); HEPATITIS C ANTIBODY <0.1 s/co ratio (0.0-0.9)
--- NOTE | 2019-09-01 06:27 | NUR ---
Patient in room PCU 3014. I have received report from EMILY VAZ and had the opportunity to ask questions and assume patient care.
--- NOTE | 2019-09-01 06:40 | NUR ---
Problems reprioritized. Patient report given, questions answered & plan of care reviewed with EMILY Thurman.
[2019-09-01] MEDS: furosemide 20MG tablet PO SCH ×2 (09:03→11:58)
[2019-09-01] MEDS: carVEDilol 3.125mg tablet PO SCH ×2 (09:03→20:00)
[2019-09-01] MEDS: spironolactone 25 MG tablet PO SCH (09:04)
[2019-09-01] MEDS: enoxaparin 40mg/0.4ml syringe SUBCUT SCH (09:04)
[2019-09-01] MEDS: metoclopramide 5 mg/ml inj IV PRN (14:22)
--- NOTE | 2019-09-01 14:42 | NUR ---
Initial: Pt admit with cgqcp-kz-qvmbsac systolic heart failure and SUSHMA, receiving Lasix. Pt previously constipated with only a small BM this morning with prior BM 08/27. Pt receiving routine Relistor with PRN Reglan last given today, constipation now resolved per MD notes. Pt on a heart healthy diet with a 1.5 L fluid restriction documented with fluctuating PO intake of 50-100% however consistently up to 75-100% the three most recent meals likely meeting nutrient needs. Pt with nausea however it's now decreased per MD notes. No nutrition diagnosis at this time. Will continue to follow. Recommendations: 1) Continue heart healthy diet with 1.5L fluid restriction per MD 2) Routine bowel care 3) Wt per rx Addendum: 09/01/19 at [address] Amended: Links added.
--- NOTE | 2019-09-01 15:16 | NUR ---
PAGER ID: [phone] MESSAGE: DR. JOSEPH, 2997G/ISAK,N/V WITH REGLAN 10MG ADM. GOOD STATED RELIEF. NOW HE BECAME VERY SOB, SAT 99% ON RA. HE STATES "THIS HAD BEEN HAPPENING ON/OFF LAST FEW DAYS". YUNIOR 5441. TY.
--- NOTE | 2019-09-01 15:44 | NUR ---
PAGER ID: [phone] MESSAGE: DR. JOSEPH, 4665S/ISAK, HE ASKED ME TO PAGE YOU. STATES"TELL HIM I STRONGLY WANT TO BE DISCHARGED TODAY". YUNIOR 5441. TY.
--- NOTE | 2019-09-01 16:15 | NUR ---
PAGER ID: [phone] MESSAGE: DR. JOSEPH, 3194B/ISAK, JUST HAD 11 BEAT RUN OF WIDE COMPLEX SVT. WAS ASX. YUNIOR 5441.
[2019-09-01] MEDS ORDERED: VALS40TA2 PO (16:56)
[2019-09-01] MEDS ORDERED: FURO20TA4 PO (16:56)
[2019-09-01] MEDS ORDERED: COR3.125T PO (16:56)
[2019-09-01] MEDS ORDERED: METO-292 PO (16:56)
--- NOTE | 2019-09-01 17:11 | NUR ---
STATES "I HAVE AN APPOINTMENT WITH [place] DOCTOR EITHER ON 09-03 OR 09-06" R/T CHF FOLLOW UP
[2019-09-01] MEDS ORDERED: SPIR25TA PO (17:38)
--- NOTE | 2019-09-01 17:46 | NUR ---
HAD DIFFICULTY FINALIZING SPIRONOLACTONE. IRON LEMOS RN RESOLVED THE CONFLICT.
--- NOTE | 2019-09-01 18:03 | NUR ---
PAGER ID: [phone] MESSAGE: DR. JOSEPH, 1102T/ISAK, MOTHER TALKED HIM INTO STAYING TILL TOMORROW. TY, YUNIOR 5441.
--- NOTE | 2019-09-01 18:30 | NUR ---
Patient in room PCU 3014. I have received report from EMILY Thurman and had the opportunity to ask questions and assume patient care. Patient awake for bedside report, on room air, and saline locked. Stable at this time. Will continue to monitor closely.
--- NOTE | 2019-09-01 18:40 | NUR ---
Problems reprioritized. Patient report given, questions answered & plan of care reviewed with EMILY FIELD.
--- NOTE | 2019-09-01 20:00 | NUR ---
Coreg not administered due to decreased SBP 88 and HR 86. Patient remains asymptomatic at this time with no complaints. Wants to take a shower. Will continue to monitor closely.
[2019-09-02 02:00] VITALS: BP 116/70
--- NOTE | 2019-09-02 05:05 | NUR ---
wrong patient Addendum: 09/02/19 at 0505 by Meagan Gill RN Amended: Links added.
[2019-09-02 05:58] LABS: ALANINE AMINOTRANSFERASE 839 U/L (12-78); ALBUMIN 2.8 G/DL (3.4-5.0); ALBUMIN/GLOBULIN RATIO 0.9 (1.1-1.5); ALKALINE PHOSPHATASE 172 IU/L (46-116); ANION GAP 9 (8-16); ASPARTATE AMINO TRANSFERASE 453 U/L (10-37); BILIRUBIN,TOTAL 2.8 MG/DL (0.1-1.0); BLOOD UREA NITROGEN 46 MG/DL (7-18); BUN/CREATININE RATIO 23.5 (5.4-32.0); CALCIUM 8.3 MG/DL (8.5-10.1); CHLORIDE 92 MMOL/L (99-107); CREATININE 1.96 MG/DL (0.60-1.10); GLUCOSE 129 MG/DL (70-104); POTASSIUM 4.2 MMOL/L (3.5-5.1); SODIUM 129 MMOL/L (135-145); TOTAL CARBON DIOXIDE 28.1 MMOL/L (24-32); TOTAL PROTEIN 5.8 G/DL (6.4-8.2); eGFR 40 ML/MIN
[2019-09-02 06:00] VITALS: BP 126/78
--- NOTE | 2019-09-02 06:30 | NUR ---
Patient in room PCU 3014. I have received report from EMILY Lewis and had the opportunity to ask questions and assume patient care. Noted that pt was ordered NG tube 08/30, however per report the pt refused.
--- NOTE | 2019-09-02 06:50 | NUR ---
Problems reprioritized. Patient report given, questions answered & plan of care reviewed with EMILY Pham.
[2019-09-02] MEDS: carVEDilol 3.125mg tablet PO SCH (07:44)
[2019-09-02] MEDS: enoxaparin 40mg/0.4ml syringe SUBCUT SCH (07:44)
[2019-09-02] MEDS: methylnaltrexone br 12mg/0.6ml inj***SubQ only SQ SCH (07:44)
[2019-09-02] MEDS: furosemide 20MG tablet PO SCH (07:45)
[2019-09-02] MEDS: spironolactone 25 MG tablet PO SCH (07:45)
[2019-09-02] MEDS: LIDOcaine 5% patch TP SCH (07:46)
--- NOTE | 2019-09-02 10:45 | NUR ---
pt discharged. IV d/c'd, tele removed, all belongings, walked down by staff, left in private vehicle.
== END 2019-09-02 11:04 | disposition home or self-care (01) | DRG 194 ==
LOC: ER 13:47 → ED HOLD 18:10 → PCU 3S 20:00
PROVIDERS: ADMIT Internal Medicine; ATTEND Internal Medicine
DX: I50.23 Acute on chronic systolic (congestive) heart failure (principal); N17.9 Acute kidney failure, unspecified; I27.20 Pulmonary hypertension, unspecified; E87.1 Hypo-osmolality and hyponatremia; R18.8 Other ascites; K59.03 Drug induced constipation; T40.605A Adverse effect of unspecified narcotics, initial encounter; R74.0 Nonspecific elevation of levels of transaminase and lactic acid dehydrogenase [LDH]; R00.0 Tachycardia, unspecified; R74.8 Abnormal levels of other serum enzymes; Z79.82 Long term (current) use of aspirin; Z79.899 Other long term (current) drug therapy; Y92.89 Other specified places as the place of occurrence of the external cause
CPT/HCPCS: 36415; 71045; 74150; 80053; 83880; 84484; 85025; 86705; 86706; 86803; 87081; 87340; 93005; 93970; 96374; 99285; G0378; J1250; J1650; J1940; J2212; J2270; J2405; J2765; Q0169

== ENCOUNTER 2020-01-25 19:55 | Emergency (ER) | payer MEDICAID ==
[~2020-01-25] VITALS: Ht 180.3 cm; Wt 86.3 kg
[~2020-01-25 19:55] MED LIST changes: -ALBU18HF2 IH; +ALBU8.5H8 INH; +ASPI-12 PO; -ASPI-1265 PO; -AZI25OT PO; +COR3.125T PO; +FURO20TA4 PO; -FURO40TA4 PO; -LISI10TA4 PO; +METO-292 PO; -NO HOME MEDS; +SPIR25TA PO; +VALS40TA2 PO
[2020-01-25] MEDS ORDERED: ketorolac tromethamine 15mg/ml inj. IM ONE (20:25)
--- NOTE | 2020-01-25 20:57 | NUR ---
CHECKED IN WITH PT REGARDING URINE SAMPLE; PT UNABLE TO GO. RN ENCOURAGED PT TO URINATE; VERBALIZED UNDERSTANDING.
[2020-01-25 21:26] LABS: CLARITY,URINE CLEAR (Clear); COLOR,URINE YELLOW (Yellow); GLUCOSE, URINE NEGATIVE (Neg); KETONES,URINE NEGATIVE (Neg); LEUKOCYTE ESTERASE ,URINE NEGATIVE (Neg); NITRITES, URINE NEGATIVE (Neg); OCCULT BLOOD,URINE NEGATIVE (Neg); PROTEIN,URINE NEGATIVE (Neg)
[2020-01-25 21:27] LABS: UA COLLECTION TYPE CLN CATCH MIDSTREAM
[2020-01-25 21:40] LABS: BASOPHILS # (AUTO) 0.1 X10'3 (0-0.2); BASOPHILS % (AUTO) 0.8 % (0-1); EOSINOPHILS # (AUTO) 0.2 X10'3 (0-0.9); EOSINOPHILS % (AUTO) 2.7 % (0-6); HEMATOCRIT 48.4 % (42.0-52.0); HEMOGLOBIN 16.5 g/dl (14.0-17.9); LYMPHOCYTES # (AUTO) 1.9 X10'3 (1.1-4.8); LYMPHOCYTES % (AUTO) 21.7 % (21-51); MEAN CORPUSCULAR HEMOGLOBIN 30.1 PG (27.0-31.0); MEAN CORPUSCULAR HGB CONC 34.2 g/dL (33.0-36.5); MEAN CORPUSCULAR VOLUME 88.1 FL (78-98); MEAN PLATELET VOLUME 9.7 FL (7.4-10.4); MONOCYTES # (AUTO) 0.6 X10'3 (0-0.9); MONOCYTES % (AUTO) 6.8 % (2-12); NEUTROPHILS # (AUTO) 5.8 X10'3 (1.8-7.7); PLATELET COUNT 284 X10'3 (140-440); RED BLOOD COUNT 5.49 X10'6 (4.70-6.10); WHITE BLOOD COUNT 8.6 X10'3 (4.5-11.0)
[2020-01-25 21:50] LABS: ALANINE AMINOTRANSFERASE 27 U/L (12-78); ALBUMIN 4.2 G/DL (3.4-5.0); ALKALINE PHOSPHATASE 130 IU/L (46-116); ANION GAP 6 (8-16); ASPARTATE AMINO TRANSFERASE 15 U/L (10-37); BILIRUBIN,TOTAL 0.5 MG/DL (0.1-1.0); BLOOD UREA NITROGEN 21 MG/DL (7-18); BUN/CREATININE RATIO 16.7 (5.4-32.0); CALCIUM 9.5 MG/DL (8.5-10.1); CHLORIDE 102 MMOL/L (99-107); CREATININE 1.26 MG/DL (0.60-1.10); GLUCOSE 116 MG/DL (70-104); POTASSIUM 3.7 MMOL/L (3.5-5.1); SODIUM 140 MMOL/L (135-145); TOTAL CARBON DIOXIDE 31.6 MMOL/L (24-32); TOTAL PROTEIN 8.3 G/DL (6.4-8.2); eGFR 67 ML/MIN
[2020-01-25] MEDS ORDERED: iohexol 300mg/ml 100ml inj. ONE (22:03)
[2020-01-25] MEDS ORDERED: ACET-3067 PO (22:43)
[2020-01-25] MEDS ORDERED: HYDROcodone/acetaminophen 5mg/325mg tablet PO ONE (23:00)
[2020-01-25 23:01] VITALS: BP 126/77
== END 2020-01-25 23:11 | disposition home or self-care (01) ==
LOC: ER 19:55
DX: N50.89 Other specified disorders of the male genital organs (principal); I50.9 Heart failure, unspecified; F17.200 Nicotine dependence, unspecified, uncomplicated; F12.90 Cannabis use, unspecified, uncomplicated; F15.90 Other stimulant use, unspecified, uncomplicated; Z79.82 Long term (current) use of aspirin; Z79.899 Other long term (current) drug therapy
CPT/HCPCS: 36415; 72193; 76870; 80053; 81003; 85025; 96372; 99285; J1885; Q9967

== ENCOUNTER 2023-02-04 00:37 | Emergency (ER) | payer MEDICAID ==
[~2023-02-04] VITALS: Ht 180.3 cm; Wt 90.9 kg
[~2023-02-04 00:37] MED LIST changes: +ALBU8.5H17 INH; -ALBU8.5H8 INH
[2023-02-04 00:42] VITALS: BP 142/86
--- NOTE | 2023-02-04 00:50 | NUR ---
PT IN CUSTODY WITH [employer] OFFICER LIN AT BEDSIDE
[2023-02-04] MEDS ORDERED: sacubitril/valsartan 24mg-26mg tablet PO ONE (01:30)
[2023-02-04] MEDS ORDERED: carvedilol 6.25mg tablet PO ONE (01:30)
== END 2023-02-04 02:22 | disposition home or self-care (01) ==
LOC: ER 00:37
DX: I50.9 Heart failure, unspecified; F17.200 Nicotine dependence, unspecified, uncomplicated; F12.90 Cannabis use, unspecified, uncomplicated; F15.20 Other stimulant dependence, uncomplicated; Z88.8 Allergy status to other drugs, medicaments and biological substances
CPT/HCPCS: 99283

== ENCOUNTER 2025-02-22 11:11 | Outpatient (CLI) | payer MEDICAID ==
[~2025-02-22 11:11] MED LIST changes: +CARV3.1232 PO; -COR3.125T PO
--- NOTE | 2025-02-22 12:25 | RADIOLOGY REPORT ---
EXAM: DI CHEST,TWO VIEWS CLINICAL HISTORY: Pain RULE OUT TUBERCULOSIS COMPARISON: None TECHNIQUE: Frontal and lateral view of the chest was obtained FINDINGS: Lines and Tubes: Cardiac pacemaker projects over the left chest wall Lungs: No focal consolidation. Pleura: No effusion. No pneumothorax. Cardiomediastinal contours: Unremarkable Bones: No acute osseous abnormality. IMPRESSION: No acute cardiopulmonary disease. No radiographic evidence of tuberculosis.
== END 2025-02-22 23:59 | disposition home or self-care (01) ==
LOC: RAD 11:11
PROVIDERS: ATTEND Family Medicine
DX: A15.9 Respiratory tuberculosis unspecified (principal)
CPT/HCPCS: 71046

== ENCOUNTER 2025-05-28 15:11 | Outpatient (CLI) | payer MEDICAID ==
[~2025-05-28] VITALS: Ht 177.8 cm; Wt 97.5 kg
[~2025-05-28 15:11] MED LIST changes: -CARV3.1232 PO; +COR3.125T PO
[2025-05-28 15:43] VITALS: PULSE 73; RESP 16; O2SAT 98
[2025-05-28 15:54] VITALS: PULSE 82; RESP 16
[2025-05-28] MEDS: albuterol 2.5 MG/3 ML nebule NEB ONE (16:18)
--- NOTE | 2025-05-28 17:16 | PROCEDURE NOTE - Respiratory ---
Procedure Note-Respiratory Procedure Name: This is a spirometry study dated May 28, 2025. The spirometry study was performed both before and after inhaled bronchodilator. Spirometry measurements: Both the forced vital capacity and the FEV1 measurements are normal. The FEV1 ratio however is reduced. Several of the flow rate measurements show significant reduction. After inhaled bronchodilator there is small but significant improvement in the FEV1 and some of the flow rate measurements. Overall conclusion: This study is abnormal. There is evidence for obstructive ventilatory defect in the mild category. The patient improves very slightly with inhaled bronchodilator. These findings suggest the early onset of COPD related to ongoing smoking. It is strongly recommended that the patient abstain from cigarette smoking. Regular use of bronchodilator medication may very well help this patient. We have no previous studies for comparison. ERIC REYES MD May 28, 2025 17:16
== END 2025-05-28 23:59 | disposition home or self-care (01) ==
LOC: RT 15:11
PROVIDERS: ATTEND Internal Medicine Interventional Cardiology
DX: I11.0 Hypertensive heart disease with heart failure (principal); I50.9 Heart failure, unspecified
CPT/HCPCS: 94060; 94760